=== PATIENT | male | born 1990 | race Caucasian/White ===

== ENCOUNTER 2018-05-10 11:42 | Inpatient (IN) | payer SELFPAY ==
[~2018-05-10] VITALS: Ht 170.2 cm; Wt 77.1 kg
[2018-05-10 11:52] VITALS: BP 146/74
--- NOTE | 2018-05-10 12:00 | NUR ---
PT AMBULATES TO BED 8 Addendum: 05/10/18 at 1204 by [email or web address] REPORT GIVEN TO RODOLFO BURRELL
--- NOTE | 2018-05-10 12:01 | NUR ---
28Y/M BIB FRIEND C/O N/V, DIFFICULT TO BREATH X 2 HOURS AGO S/P USING COCAINE LAST NIGHT. PT STATED USING COCAINE X 4 YEARS. PT SPO2 IS 100, EVEN AND UNLABORED BREATHING, PT IS HOOKED UP TO MONITOR AND RESTING IN BED. PT STATED " HE THREW UP X 2 THIS MORNING". PT STATES NO CHEST PAIN AT THIS TIME. SKIN IS PINK/WARM/DRY; AAOX4 WITH EVEN AND STEADY GAIT; LUNGS CLEAR BL; HR EVEN AND REGULAR; VSS; PATIENT POSITIONED FOR COMFORT; HOB ELEVATED; BEDRAILS UP X1; BED DOWN. ER MD MADE AWARE OF PT STATUS.
[2018-05-10] MEDS ORDERED: diphenhydrAMINE 50 MG/ML VIAL IVP ONE (12:20)
[2018-05-10] MEDS ORDERED: NACL 0.9% 1,000 ML IV ONE (12:20)
[2018-05-10] MEDS ORDERED: ASPIRIN 81 MG TAB.CHEW PO ONE (12:20)
[2018-05-10] MEDS ORDERED: LORazepam 2 MG/ML VIAL IVP ONE (12:20)
[2018-05-10 13:11] LABS: HEMATOCRIT 42.5 % (36-52); HEMOGLOBIN 14.3 g/dL (12.0-18.0); MEAN CORPUSCULAR HEMOGLOBIN 32 pg (27-31); MEAN CORPUSCULAR HGB CONC 34 g/dL (33-37); MEAN CORPUSCULAR VOLUME 94.2 fL (80-94); PLATELET COUNT (AUTO) 298 K/uL (140-450); RED BLOOD CELL COUNT(AUTO) 4.51 MIL/uL (4.20-6.10); WHITE BLOOD COUNT (AUTO) 11.4 K/uL (4.8-10.8)
[2018-05-10 13:12] LABS: BASOPHILS % (AUTO) 2.1 % (0.0-2.0); EOSINOPHILS % (AUTO) 0.2 % (0.0-4.0); MONOCYTES % (AUTO) 8.4 % (1.7-9.3); NEUTROPHILS % (AUTO) 83.3 % (42.2-75.2)
[2018-05-10 13:31] LABS: ANION GAP 17.6 (8-16); CARBON DIOXIDE 21.4 mmol/L (21-32); CHLORIDE 104 mmol/L (98-107); CREATININE 1.1 mg/dL (0.7-1.3); GLUCOSE 102 mg/dL (74-106); SODIUM SERUM 139 mmol/L (136-145); UREA NITROGEN, BLOOD 16 mg/dL (7-18)
[2018-05-10 13:32] LABS: ALBUMIN 4.1 g/dL (3.4-5.0); ASPARTATE AMINOTRANSFERASE 21 U/L (15-37); GFR ARICAN-AMERICAN 102 mL/min (>90); TOTAL BILIRUBIN 0.3 mg/dL (0.0-1.0)
[2018-05-10 13:36] LABS: ACETAMINOPHEN < 0.5 ug/ml (10-30); SALICYLATE < 2.8 mg/dL (2.8-20.0)
[2018-05-10 14:02] LABS: CKMB RELATIVE INDEX 1.2 (0.0-2.5); CREATINE KINASE MB 4.2 ng/mL (0-3.6)
[2018-05-10 14:20] LABS: BARBITURATE, URINE NEG. ng/ml (NEG <=200); BENZODIAZEPINE, URINE NEG. ng/mL (NEG <=200); CANNABINOID, URINE NEG. ng/mL (NEG <=50); COCAINE, URINE POS. ng/mL (NEG <=300); OPIATE, URINE NEG. ng/mL (NEG <=2000); PHENCYCLIDINE SCREEN,URINE NEG. ng/mL (NEG <=25)
[2018-05-10] MEDS ORDERED: DEXT 5% / NACL 0.45% 1,000 ML IV SCH (14:28)
[2018-05-10] MEDS ORDERED: DOCUSATE SODIUM 100 MG GELCAP PO PRN (14:30)
[2018-05-10] MEDS ORDERED: ACETAMINOPHEN 325 MG TAB PO PRN (14:30)
[2018-05-10] MEDS ORDERED: LORazepam 2 MG/ML VIAL IM/IVP PRN (14:30)
[2018-05-10] MEDS ORDERED: ONDANSETRON 4 MG/2 ML VIAL IM/IVP PRN (14:30)
[2018-05-10] MEDS ORDERED: ZOLPIDEM 5 MG TAB PO PRN (14:30)
[2018-05-10 14:54] LABS: APPEARANCE,URINE CLEAR (CLEAR); BLOOD, URINE NEGATIVE (NEGATIVE); COLOR,URINE YELLOW (YELLOW); UGLUCOSE NEGATIVE (NEGATIVE)
[2018-05-10 14:55] LABS: BILIRUBIN,URINE NEGATIVE (NEGATIVE); LEUKOCYTE ESTERASE ,URINE NEGATIVE (NEGATIVE); NITRITE, URINE NEGATIVE (NEGATIVE)
--- NOTE | 2018-05-10 14:55 | NUR ---
PT TAKEN TO THE FLOOR
[2018-05-10 15:00] VITALS: BP 114/62
--- NOTE | 2018-05-10 15:00 | NUR ---
PATIENT ADMITTED TO THE UNIT. PATIENT AWAKE, ALERT AND ORIENTED. PATIENT AMBULATED TO THE BED FROM THE [facility]. NO S/S OF DISTRESS. PATIENT ON ROOM AIR. PATIENT DENIES PAIN AT THIS TIME. PATIENT PLACED ON TELE MONITORING. BED LOWERED WITH CALL LIGHT WITHIN REACH. WILL CONTINUE TO MONITOR
--- NOTE | 2018-05-10 15:05 | NUR ---
Patient will be admitted to care of DR DAY. Admited to TELE FLOOR. Will go to room 119-B. Belongings list completed. Report to RNBAILEY.
[2018-05-10 15:20] LABS: MAGNESIUM 1.8 mg/dL (1.8-2.4); PHOSPHORUS 1.8 mg/dL (2.5-4.9); THYROID STIMULATING HORMONE 1.07 uIU/mL (0.34-3.74)
[2018-05-10] MEDS ORDERED: SODIUM PHOS / POTASSIUM PHOS 1 PKT PDR PO SCH (17:00)
[2018-05-10] MEDS: NACL 0.9% 1,000 ML IV SCH (17:46)
--- NOTE | 2018-05-10 18:35 | NUR ---
PATIENT TOLERATED REGULAR DIET WELL. NO S/S OF DISTRESS NOTED
--- NOTE | 2018-05-10 19:15 | NUR ---
PATIENT REPORT GIVE AT BEDSIDE. PATIENT ENDORSED IN STABLE CONDITION
--- NOTE | 2018-05-10 19:20 | NUR ---
RECEIVED FROM AM RN AWAKE AND ALERT. TIA IN HERE TO SEE PT. ABLE TO VERBALIZE NEEDS WELL. NO COMPLAINTS OF ANY PAIN. NO SOB. TELEMETRY MONITORING. CALL LIGHT WITH IN REACH. CARE PLANS FOR THE NIGHT DISCUSSED WITH HIM.
[2018-05-10 19:53] VITALS: BP 138/76
[2018-05-10] MEDS: chlordiazePOXIDE 25 MG CAP PO SCH (20:54)
--- NOTE | 2018-05-10 23:29 | NUR ---
SLEEPING AT THIS TIME. WAKES UP EASILY WHEN TOUCHED. NO RESTLESSNESS NOTED. CALL LIGHT WITH IN REACH. TELEMETRY MONITORING.
[2018-05-11 00:30] VITALS: BP 119/78
--- NOTE | 2018-05-11 02:16 | NUR ---
PT. SLEEPING. NO RESTLESSNESS. CALL LIGHT WITH IN REACH. TELEMETRY MONITORING.
[2018-05-11 04:55] VITALS: BP 123/58
[2018-05-11] MEDS: NACL 0.9% 1,000 ML IV SCH ×2 (05:03→12:24)
[2018-05-11] MEDS: chlordiazePOXIDE 25 MG CAP PO SCH ×2 (05:03→12:23)
--- NOTE | 2018-05-11 05:36 | NUR ---
SLEEPING WELL THIS SHIFT. 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 WOKE UP EASILY FROM SLEEP. ABLE TO VERBALIZE NEEDS WELL. TELEMETRY MONITORING. CALL LIGHT WITH IN REACH.
[2018-05-11 06:21] LABS: T4 (THYROXINE) 6.1 ug/dL (4.5-12.0)
[2018-05-11 06:23] LABS: ANION GAP 7.8 (8-16); CREATININE 1.2 mg/dL (0.7-1.3); POTASSIUM 3.8 mmol/L (3.5-5.1)
[2018-05-11 06:33] LABS: CHOL/HDL RATIO 1.9 (1-4.5)
[2018-05-11 06:37] LABS: MAGNESIUM 1.8 mg/dL (1.8-2.4); PHOSPHORUS 2.7 mg/dL (2.5-4.9)
--- NOTE | 2018-05-11 07:18 | NUR ---
HEART RATE NORMAL AT THIS TIME. ENDORSED TO THE NEXT RN FOR CONTINUITY OF CARE. A/O X 4. CLEAR SPEECH.
--- NOTE | 2018-05-11 07:20 | NUR ---
RECEIVED REPORT FROM PLASMA PROCESSOR RN. PATIENT IN STABLE CONDITION. VITALS STABLE. NO COMPLAINTS OF PAIN OR DISCOMFORT. RESTING IN BED, AROUSABLE BY VOICE. SKIN INTACT. WILL CONTINUE TO MONITOR HEART RATE FOR TACHYCARDIA. PT ON SEIZURE PRECAUTIONS. IV SITE PATENT AND RUNNING IVF PER MD ORDERS. WILL CONTINUE TO MONITOR.
[2018-05-11 07:28] LABS: RED BLOOD CELL COUNT(AUTO) 4.19 MIL/uL (4.20-6.10); WHITE BLOOD COUNT (AUTO) 5.3 K/uL (4.8-10.8)
[2018-05-11 07:29] LABS: BASOPHILS % (AUTO) 2.7 % (0.0-2.0); EOSINOPHILS % (AUTO) 1.4 % (0.0-4.0); HEMATOCRIT 40.1 % (36-52); HEMOGLOBIN 13.8 g/dL (12.0-18.0); LYMPHOCYTES % (AUTO) 30.5 % (20.5-51.1); MEAN CORPUSCULAR HEMOGLOBIN 33 pg (27-31); MEAN CORPUSCULAR HGB CONC 34 g/dL (33-37); MEAN CORPUSCULAR VOLUME 95.9 fL (80-94); MONOCYTES % (AUTO) 14.9 % (1.7-9.3); NEUTROPHILS % (AUTO) 50.5 % (42.2-75.2); PLATELET COUNT (AUTO) 231 K/uL (140-450); RED CELL DISTRIBUTION WIDTH 12.4 % (11.6-13.7)
[2018-05-11 08:00] VITALS: BP 127/80
[2018-05-11] MEDS ORDERED: LIB25 PO (08:15)
--- NOTE | 2018-05-11 08:20 | NUR ---
PATIENT HAS BEEN SCREENED AND CATEGORIZED LOW NUTRITION RISK. PATIENT WILL BE SEEN WITHIN 7 DAYS OF ADMISSION. 05/17/[address]
[2018-05-11] MEDS ORDERED: CALCIUM CARB/VIT-D 500 MG/200 IU 1 TAB PO SCH (08:30)
--- NOTE | 2018-05-11 10:08 | NUR ---
LAB REPORTED CRITICAL LACTIC ACID VALUE. MD NOTIFIED. PER MD ORDERS, CONTINUE WITH IVF AND RECHECK LACTIC ACID.
[2018-05-11 12:00] VITALS: BP 135/85
--- NOTE | 2018-05-11 12:23 | NUR ---
SCHEDULED MEDICATIONS ADMINISTERED PER MD ORDERS. PT DENIES PAIN OR DISCOMFORT.
--- NOTE | 2018-05-11 14:12 | NUR ---
LAB REPORTED CRITICAL LACTIC ACID VALUE. MD NOTIFIED. PER , PT IS OKAY TO DISCHARGE TO HOME. WILL CONTINUE TO MONITOR.
--- NOTE | 2018-05-11 15:30 | NUR ---
DISCHARGE PAPERWORK, INCLUDING INSTRUCTIONS TO FOLLOW UP WITH PCP AND NEW PRESCRIPTIONS, GIVEN TO PATIENT. MEDICATION TEACHING GIVEN. PT VERBALIZED COMPLETE UNDERSTANDING OF ALL TEACHING. IV SITE REMOVED WITH MINIMAL BLOOD LOSS AND LUMEN COMPLETELY INTACT. ID BANDS REMOVED. ALL PERSONAL BELONGINGS ARE WITH PT.
--- NOTE | 2018-05-11 15:40 | NUR ---
PT LEFT [facility] UNIT. GOING HOME VIA PRIVATE VEHICLE WITH FAMILY MEMBER.
== END 2018-05-11 15:40 | disposition home or self-care (01) | DRG 917 ==
LOC: MED 11:42 → MTU 14:28
PROVIDERS: ADMIT Family Medicine; ATTEND Family Medicine
DX: T40.5X1A Poisoning by cocaine, accidental (unintentional), initial encounter (principal); G92 Toxic encephalopathy; F14.229 Cocaine dependence with intoxication, unspecified; E83.51 Hypocalcemia; E66.3 Overweight; F10.20 Alcohol dependence, uncomplicated; F41.1 Generalized anxiety disorder; Y90.1 Blood alcohol level of 20-39 mg/100 ml; E83.39 Other disorders of phosphorus metabolism; R00.0 Tachycardia, unspecified; E87.8 Other disorders of electrolyte and fluid balance, not elsewhere classified; Z83.3 Family history of diabetes mellitus; Z68.26 Body mass index [BMI] 26.0-26.9, adult; Z71.41 Alcohol abuse counseling and surveillance of alcoholic; Z71.51 Drug abuse counseling and surveillance of drug abuser; Z71.3 Dietary counseling and surveillance; Y92.89 Other specified places as the place of occurrence of the external cause
CPT/HCPCS: 36415; 71045; 80048; 80053; 80305; 81003; 82150; 82550; 82553; 83036; 83605; 83690; 83735; 83880; 84100; 84436; 84443; 84484; 85025; 85610; 85730; 87040; 87081; 87086; 93005; 96361; 96374; 96375; 99285; G0480; G0482; J1200; J2060; J7030; Q0092